=== PATIENT | male | born 1955 | race Caucasian/White ===

== ENCOUNTER 2019-05-20 15:16 | Emergency (ER) | payer OTHER ==
[~2019-05-20] VITALS: Ht 182.9 cm; Wt 81.8 kg
[2019-05-20 15:36] VITALS: BP 136/76
--- NOTE | 2019-05-20 15:46 | NUR ---
BIB EMS FROM HOME. PT C/O SUDDEN ONSET OF DIZZINESS WITH +N/V, HE RPTS THAT [facility] BUT THE DIZZINESS WORSENED AND HE HAD TO GET ON THE FLOOR. PT CALLED EMS AND WHEN THEY ARRIVED THEY RPT PT WAS LYING ON THE FLOOR, A&O X 4 BUT WITH VERY SLOW SPEECH. VSS AND FSBS = 85. PIV WAS ESTABLISHED AND PT TRANSPORTED TO ED. PT NOW MOVE ALL EXTREMETIES = AND WEAK, FOLLOWS COMMANDS AND IS ORIENTED X 4 ALTHOUGH HE IS VERY SLEEPY. PT ON MONITORS AND EKG COMPLETED, FSBS=84. CALL LIGHT W/I REACH AND SBAR RPT GIVEN TO ARIADNA PERES.
[2019-05-20 15:59] LABS: BASOPHILS # (AUTO) 0.25 x10^3/uL (0-0.1); BASOPHILS % (AUTO) 2 % (0-1); EOSINOPHILS # (AUTO) 0.32 x10^3/uL (0-0.4); EOSINOPHILS % (AUTO) 3 % (1-7); LYMPHOCYTES # (AUTO) 3.55 x10^3/uL (1-3.4); LYMPHOCYTES % (AUTO) 27 % (22-44); MD NO; MEAN CORPUSCULAR HEMOGLOBIN 32.7 pg (27.5-34.5); MEAN CORPUSCULAR VOLUME 99.2 fL (81-97); MEAN PLATELET VOLUME 8.3 fL (7.4-10.4); MONOCYTES # (AUTO) 0.53 x10^3/uL (0.2-0.8); MONOCYTES % (AUTO) 4 % (2-9); NEUTROPHILS # (AUTO) 8.59 x10^3/uL (1.8-6.8); NEUTROPHILS % (AUTO) 65 % (42-75); PLATELET COUNT 280 x10^3/uL (130-400); RED BLOOD COUNT 5.41 x10^6/uL (4.38-5.82); RED CELL DISTRIBUTION WIDTH 14.8 % (9.4-14.8)
[2019-05-20] MEDS ORDERED: SODIUM CHLORIDE 0.9% 1,000ML IVBOLUS ONE (16:00)
[2019-05-20 16:01] LABS: ALBUMIN 3.5 g/dL (3.4-5.0); CALCIUM 8.5 mg/dL (8.5-10.1)
[2019-05-20 16:08] LABS: ALANINE AMINOTRANSFERASE 18 U/L (12-78); ALKALINE PHOSPHATASE 109 U/L (45-117); BILIRUBIN,TOTAL 0.3 mg/dL (0.2-1.0); CREATINE KINASE, TOTAL 102 U/L (39-308); TOTAL PROTEIN 7.4 g/dL (6.4-8.2); TROPONIN I < 0.015 ng/mL (0.000-0.045)
--- NOTE | 2019-05-20 16:10 | NUR ---
REPORT FROM DAVIS. PT RESTING, LETHARGIC, ANSWERING ALL QUESTIONS.
[2019-05-20 16:14] LABS: ANION GAP 7 mmol/L (5-15); CHLORIDE 108 mmol/L (98-107)
--- NOTE | 2019-05-20 17:22 | NUR ---
PT STANDING UP TO VIOD IN URINAL
[2019-05-20 17:37] LABS: MICROSCOPIC NOT IND
[2019-05-20 17:38] LABS: CULTURE INDICATED? NO
[2019-05-20 17:49] LABS: AMPHETAMINE SCREEN, URINE Negative (Negative); BARBITURATE SCREEN, URINE Positive (Negative); BENZODIAZEPINE SCREEN, URINE Positive (Negative); CANNABINOID SCREEN, URINE Negative (Negative); COCAINE SCREEN, URINE Negative (Negative); METHADONE SCREEN, URINE Negative (Negative); OPIATE SCREEN, URINE Negative (Negative)
--- NOTE | 2019-05-20 18:00 | NUR ---
Patient/Caregiver given discharge instructions and they have confirmed that they understand the instructions. Patient ambulatory with steady gait.
== END 2019-05-20 18:02 | disposition home or self-care (01) ==
LOC: ED 17:45
DX: R42 Dizziness and giddiness (principal); R53.1 Weakness
CPT/HCPCS: 36415; 70450; 71045; 80053; 80307; 81003; 82550; 82962; 83735; 84484; 85025; 93005; 99284; J7030